=== PATIENT | male | born 1975 | race Caucasian/White ===

== ENCOUNTER 2020-10-09 17:25 | Emergency (ER) | payer OTHER ==
[2020-10-09 18:47] VITALS: BP 145/104; PULSE 77; TEMP 98.9; BMI 29.9
== END 2020-10-09 21:29 | disposition home or self-care (01) ==
LOC: FER 17:25
DX: S63.501A Unspecified sprain of right wrist, initial encounter (principal)
CPT/HCPCS: 73110-TC-RT-FY; 73130-TC-RT-FY; 99284-25

== ENCOUNTER 2021-02-25 20:18 | Emergency (ER) | payer OTHER ==
[2021-02-25 20:34] VITALS: BP 156/99; PULSE 88; TEMP 98.1; BMI 30.7
[2021-02-25] MEDS ORDERED: IBUPROFEN 600 MG TABLET (FP) PO ONE ×2 (21:37→21:39)
== END 2021-02-25 21:45 | disposition home or self-care (01) ==
LOC: FER 20:18
DX: S63.691A Other sprain of left index finger, initial encounter (principal)
CPT/HCPCS: 73140-TC-RT-FY; 99284-25

== ENCOUNTER 2021-06-02 23:06 | Emergency (ER) | payer OTHER ==
[2021-06-02 23:13] VITALS: BP 144/101; PULSE 85; TEMP 99; BMI 29.9
== END 2021-06-03 01:05 | disposition home or self-care (01) ==
LOC: FER 23:06
DX: S50.01XA Contusion of right elbow, initial encounter (principal)
CPT/HCPCS: 73070-TC-RT-FY; 99283-25

== ENCOUNTER 2021-09-14 23:21 | Emergency (ER) | payer OTHER ==
[2021-09-14 23:43] VITALS: BP 135/92; PULSE 75; TEMP 99.1; BMI 30.7
== END 2021-09-15 00:16 | disposition home or self-care (01) ==
LOC: FER 23:21
DX: S63.642A Sprain of metacarpophalangeal joint of left thumb, initial encounter (principal); S80.211A Abrasion, right knee, initial encounter; S50.02XA Contusion of left elbow, initial encounter; W22.8XXA Striking against or struck by other objects, initial encounter
CPT/HCPCS: 73140-TC-LT-FY; 99283-25

== ENCOUNTER 2022-04-13 18:53 | Emergency (ER) | payer OTHER ==
[2022-04-13 19:04] VITALS: BP 133/89; PULSE 94; TEMP 98.9; BMI 29.9
[2022-04-13] MEDS ORDERED: IBUPROFEN 400 MG TABLET (FP) PO ONE ×2 (19:35→19:38)
== END 2022-04-13 19:48 | disposition home or self-care (01) ==
LOC: FER 18:53
DX: M25.531 Pain in right wrist (principal); M25.512 Pain in left shoulder
CPT/HCPCS: 99291

== ENCOUNTER 2022-11-04 14:00 | Emergency (ER) | payer OTHER ==
[2022-11-04 15:03] VITALS: BP 150/98; PULSE 80; RESP 16; TEMP 98.6; BMI 31.4
== END 2022-11-04 16:08 | disposition home or self-care (01) ==
LOC: FER 14:00
DX: S69.91XA Unspecified injury of right wrist, hand and finger(s), initial encounter (principal); S89.91XA Unspecified injury of right lower leg, initial encounter; W19.XXXA Unspecified fall, initial encounter
CPT/HCPCS: 73130-TC-RT-FY; 73562-TC-RT-FY; 99284-25

== ENCOUNTER 2024-03-09 20:40 | Emergency (ER) | payer OTHER ==
[2024-03-09 20:56] VITALS: BP 143/89; PULSE 96; RESP 16; TEMP 98.3; BMI 31.4
== END 2024-03-09 21:36 | disposition home or self-care (01) ==
LOC: FER 20:40
DX: S69.91XA Unspecified injury of right wrist, hand and finger(s), initial encounter (principal); W23.0XXA Caught, crushed, jammed, or pinched between moving objects, initial encounter
CPT/HCPCS: 99282-25